=== PATIENT | male | born 1965 | race Caucasian/White ===

== ENCOUNTER 2021-06-28 10:51 | Emergency (ER) | payer OTHER, SELFPAY ==
--- NOTE | ~2021-06-28 | CT_ITS ---
EXAMINATION: CT HEAD WITHOUT CONTRAST CLINICAL INFORMATION: Trauma, fall, pain. COMPARISON: None TECHNIQUE: Contiguous axial imaging was performed from the skull base to vertex without intravenous administration of contrast. This CT examination was performed using dose optimization techniques as appropriate, variously including the following: *Automated exposure control *Adjustment of mA and/or kV according to patient size (this includes techniques or standardized protocols for targeted exams where dose is matched to indication/reason for exam; i.e. extremities or head) *Use of iterative reconstruction technique DLP: 731 mGy-cm FINDINGS: There is no evidence of acute intracranial hemorrhage or territorial infarction. No abnormal mass effect or midline shift is seen. [place] to white matter differentiation is well preserved. No extra-axial fluid collections are identified. The ventricles are normal in size. There is no abnormal attenuation within the brain parenchyma. There is posterior parietal midline scalp hematoma without calvarial fracture. The mastoid air cells and visualized portions of the paranasal sinuses are well aerated. CT/CT head/brain wo con IMPRESSION: Right posterior parietal para midline soft tissue hematoma without calvarial fracture.
[2021-06-28 11:28] VITALS: BP 155/98; PULSE 90; RESP 18; TEMP 36.6; O2SAT 99; BMI 45.1
--- NOTE | 2021-06-28 11:32 | ED.GENADULT ---
HPI - General Adult General Chief complaint: Head Injury Stated complaint: fall at work head inj Time Seen by Provider: 06/28/21 11:31 Source: patient Limitations: no limitations History of Present Illness HPI narrative: Patient presents to the ER after falling and slipping on ice while shoveling at work. Patient states he fell and hit the right side of his head and positive loss of consciousness. Positive headache at this time at 6/10. Patient has longstanding history of hypertension which he takes lisinopril for. Patient at this time denies any nausea vomiting fever chills. Patient denies any vision changes. Headache is aching in nature on the right side of the head. Patient denies any neck pain lower back pain and midback pain. Symptoms are [id number] at this time. Small cut on the scalp was noted bleeding controlled with pressure. Patient has no other complaints at this time Related Data Previous Rx's Medication Instructions Recorded methocarbamol 750 mg tablet 750 mg PO TID PRN #20 tab 06/28/21 naproxen 500 mg tablet 500 mg PO BID PRN #20 tab 06/28/21 Allergies Allergy/AdvReac Type Severity Reaction Status Date / Time No Known Allergies Allergy Unknown UNKNOWN Unverified 04/06/20 17:06 Review of Systems Constitutional: Constitutional: Denies chills, Denies fever(s) and Denies headache(s) Eyes: Eyes: Denies blurry vision and Denies change in vision ENT: Denies headache(s) and Denies neck pain Cardiovascular: Cardiovascular: Denies chest pain and Denies dyspnea Respiratory: Respiratory: Denies cough and Denies dyspnea Gastrointestinal: Gastrointestinal: Denies nausea and Denies vomiting Musculoskeletal: Musculoskeletal: Denies back pain, Denies neck pain and Denies numbness Neurologic: Denies headache(s), Denies focal weakness and Denies numbness Endocrine: Endocrine: Reports no additional endocrine complaints Hematologic/Lymphatic: Hematologic/Lymphatic: Reports no additional hematologic/lymphatic complaints [facility] Past Medical History Attestation statement: The following information was validated with the patient. Medical History HTN (hypertension) Social History Social History Advance Directives: No Advance Directives Information Provided: Yes Physical Exam Vital Signs: Vital Signs: Last Vital Signs Temp 98 F 06/28/21 11:28 Pulse 90 06/28/21 11:28 Resp 18 06/28/21 11:28 BP 155/98 H 06/28/21 11:28 Pulse Ox 99 06/28/21 11:28 BMI result Body Mass Index 45.1 vital signs have been reviewed as normal and appeared to be correct. Blood pressure normal. Heart rate normal. Respiration rate normal. Temperature normal. Oxygen saturation normal. Appearance: Alert. Oriented X3. No acute distress. Head: Normal external exam. Normocephalic. Atraumatic. No Childress signs noted. No raccoon eyes noted superficial laceration of the scalp occipital Eyes: PERRLA. EOMI. Conjunctiva and sclera normal. Eyelids normal. ENT: Pharynx normal. Uvula midline. Moist mucous membranes. Neck: Soft full range of motion, no JVD CVS: Heart regular rate and rhythm no murmurs and rubs Respiratory: Breath sounds are clear to auscultation bilaterally. No accessory muscle use noted. Abdomen: Soft nontender no rebound or guarding positive bowel sounds Back: Full range of motion noted. Skin: Skin warm and dry. Normal skin color. Superficial laceration to the scalp noted occipital approximately less than half a cm no active bleeding Extremities: No lower extremity edema. No paraspinal muscle tenderness of the lower back. Neuro: Oriented X 3. No motor deficit. No sensory deficit. Reflexes normal. Course Course Course Narrative: Close head injury Subarachnoid hemorrhage Superficial scalp laceration Skull fracture At this time scalp laceration superficial will re-evaluate status post CT scan head. 12:28 p.m. Adult Tdap 0.[address] results discussed with patient no acute findings at this time hematoma was seen. Patient instructed ice rest return if symptoms worsen. The small superficial lacerations non bleeding would not add a stable at this time patient is aware. Medical Decision Making Imaging Data CT scan - head: Radiologist's impression: [address] [address] [address] Scan Report Signed Patient: Tc Bach MR#: [id number] : 1965 Acct:[id number] Age/Sex: 55 / M ADM Date: 06/28/21 Loc: HO.ED Attending Dr: Ordering Physician: Dax Dunne Date of Service: 06/28/21 Procedure(s): CT head/brain wo con Accession Number(s): [id number] cc: UzairDax ~ EXAMINATION: CT HEAD WITHOUT CONTRAST CLINICAL INFORMATION: Trauma, fall, pain.? COMPARISON: None TECHNIQUE: Contiguous axial imaging was performed from the skull base to vertex without intravenous administration of contrast. This CT examination was performed using dose optimization techniques as appropriate, variously including the following: *Automated exposure control *Adjustment of mA and/or kV according to patient size (this includes techniques or standardized protocols for targeted exams where dose is matched to indication/reason for exam; i.e. extremities or head) *Use of iterative reconstruction technique DLP: 731 mGy-cm FINDINGS: There is no evidence of acute intracranial hemorrhage or territorial infarction. No abnormal mass effect or midline shift is seen. [place] to white matter differentiation is well preserved. No extra-axial fluid collections are identified. The ventricles are normal in size. There is no abnormal attenuation within the brain parenchyma. There is posterior parietal midline scalp hematoma without calvarial fracture. The mastoid air cells and visualized portions of the paranasal sinuses are well aerated. ? CT/CT head/brain wo con IMPRESSION: Right posterior parietal para midline soft tissue hematoma without calvarial fracture. Dictated By: Hima Schilling MD Signed By: <Electronically signed by Hima Schilling MD in OV> 06/28/21 1220 DD/ 1210 TD/TT:? Release Specialist: [facility] [place] Discharge Plan Discharge Clinical Impression: Closed head injury Qualifiers: Encounter type: initial encounter Qualified Code(s): S09.90XA - Unspecified injury of head, initial encounter Contusion of head Qualifiers: Encounter type: initial encounter Contusion of head detail: scalp Qualified Code(s): S00.03XA - Contusion of scalp, initial encounter Patient Disposition: Home, Self-Care Instructions: Head Injury (ED) Additional Instructions: CT scan of the head is negative Is likely be more sore tomorrow Prescriptions: New naproxen 500 mg tablet 500 mg PO BID PRN (Reason: pain) Qty: 20 RF: 0 methocarbamol 750 mg tablet 750 mg PO TID PRN (Reason: muscle spasm) Qty: 20 RF: 0 Stand Alone Forms: Work/School Release
[2021-06-28 12:36] VITALS: BP 133/88; PULSE 81; RESP 18; TEMP 36.6; O2SAT 98
[2021-06-28] MEDS: Diphth,Pertus(ACell),Tet Adult 0.5 ML SYRINGE IM (12:50)
== END 2021-06-28 13:00 | disposition home or self-care (01) ==
PROVIDERS: Emergency Provider Emergency Medicine
DX: S09.90XA Unspecified injury of head, initial encounter (principal); S01.01XA Laceration without foreign body of scalp, initial encounter; S00.03XA Contusion of scalp, initial encounter; W00.0XXA Fall on same level due to ice and snow, initial encounter; Y93.H1 Activity, digging, shoveling and raking; Y92.096 Garden or yard of other non-institutional residence as the place of occurrence of the external cause; Y99.0 Civilian activity done for income or pay
CPT/HCPCS: 70450; 90471; 90715; 99283; 99284